=== PATIENT | female | born 1980 | race Caucasian/White ===

== ENCOUNTER 2020-04-04 14:23 | Inpatient (IN) | payer BC, SELFPAY ==
[~2020-04-04] VITALS: Ht 157.5 cm; Wt 97.5 kg
[~2020-04-04 14:23] MED LIST: LOP600 PO; MOT800 PO; [UNRECOGNIZED DRUG - OTHER] PO
[2020-04-04 14:24] VITALS: Ht 157.5 cm; Wt 97.5 kg
[2020-04-04 15:56] LABS: BASOPHIL % 0.7 % (0-2); PLATELET COUNT 273 x10^3mcL (130-400); RED CELL DISTRIBUTION WIDTH 14.3 % (11.5-14.5)
[2020-04-04 16:15] LABS: microscopic required? NO
[2020-04-04 16:26] LABS: urine erythrocyte NEGATIVE (NEGATIVE)
[2020-04-04 16:28] LABS: CALCIUM 8.3 mg/dL (8.5-10.1); CARBON DIOXIDE 27.8 mmol/L (21-32); CHLORIDE SERUM 101 mmol/L (98-107); CREATININE SERUM 0.8 mg/dL (0.6-1.0); GFR1 > 60 mL/min; GLUCOSE SERUM 100 mg/dL (74-106); SODIUM SERUM 136 mmol/L (136-145)
[2020-04-04 16:33] LABS: ALKALINE PHOSPHATASE 156 U/L (46-116); ALT/SGPT 36 U/L (14-59); AST/SGOT 23 U/L (15-37); BILIRUBIN TOTAL 0.3 mg/dL (0.20-1.00); C REACTIVE PROTEIN 5.8 mg/dL (<=0.9); LACTIC DEHYDROGENASE (LDH) 201 U/L (100-190)
[2020-04-04 16:34] LABS: ALBUMIN 3.3 g/dL (3.4-5.0)
[2020-04-04 19:55] LABS: MAGNESIUM 2.1 mg/dL (1.8-2.4); PHOSPHOROUS 3.1 mg/dL (2.5-4.9)
[2020-04-04 21:10] VITALS: BP 123/81
[2020-04-04 22:26] VITALS: BP 144/92
[2020-04-05 06:04] VITALS: BP 105/68
[2020-04-05 06:39] LABS: C REACTIVE PROTEIN 8.5 mg/dL (<=0.9); CALCIUM 8.1 mg/dL (8.5-10.1); CARBON DIOXIDE 29.5 mmol/L (21-32); CHLORIDE SERUM 102 mmol/L (98-107); CREATININE SERUM 0.7 mg/dL (0.6-1.0); GFR1 > 60 mL/min; GLUCOSE SERUM 141 mg/dL (74-106); MAGNESIUM 2.2 mg/dL (1.8-2.4); PHOSPHOROUS 4.1 mg/dL (2.5-4.9); POTASSIUM SERUM 4.1 mmol/L (3.5-5.1); SODIUM SERUM 137 mmol/L (136-145)
[2020-04-05 06:54] LABS: PLATELET COUNT 267 x10^3mcL (130-400); RED CELL DISTRIBUTION WIDTH 14.5 % (11.5-14.5)
[2020-04-05 08:46] VITALS: BP 110/73
[2020-04-05 08:49] LABS: BASOPHIL % 0 % (0-2)
[2020-04-05 10:33] LABS: ERYTHROCYTE SED RATE 77 mm/hr (0-20)
[2020-04-05 13:56] VITALS: BP 106/66
[2020-04-05 17:00] VITALS: BP 127/76
[2020-04-05 17:35] LABS: BILIRUBIN DIRECT 0.11 mg/dL (0.0-0.2); BILIRUBIN TOTAL 0.3 mg/dL (0.20-1.00); TOTAL PROTEIN, SERUM 7.9 g/dL (6.4-8.2)
[2020-04-05 17:38] LABS: ALBUMIN 3.2 g/dL (3.4-5.0)
[2020-04-05 21:36] VITALS: BP 128/69
[2020-04-06 05:55] VITALS: BP 107/68
[2020-04-06 06:39] LABS: C REACTIVE PROTEIN 8.1 mg/dL (<=0.9); CALCIUM 8.3 mg/dL (8.5-10.1); CARBON DIOXIDE 25.1 mmol/L (21-32); CHLORIDE SERUM 103 mmol/L (98-107); CREATININE SERUM 0.7 mg/dL (0.6-1.0); GFR1 > 60 mL/min; GLUCOSE SERUM 118 mg/dL (74-106); PHOSPHOROUS 3.4 mg/dL (2.5-4.9); POTASSIUM SERUM 3.6 mmol/L (3.5-5.1); SODIUM SERUM 139 mmol/L (136-145)
[2020-04-06 06:41] LABS: PLATELET COUNT 269 x10^3mcL (130-400); RED CELL DISTRIBUTION WIDTH 14.3 % (11.5-14.5)
[2020-04-06 06:52] LABS: BASOPHIL % 0 % (0-2)
[2020-04-06 08:41] VITALS: BP 97/50
[2020-04-06 11:54] LABS: ALBUMIN 2.8 g/dL (3.4-5.0); BILIRUBIN DIRECT 0.1 mg/dL (0.0-0.2); BILIRUBIN TOTAL 0.29 mg/dL (0.20-1.00); TOTAL PROTEIN, SERUM 7.5 g/dL (6.4-8.2)
[2020-04-06 12:26] VITALS: BP 96/58
[2020-04-06 17:08] VITALS: BP 92/51
[2020-04-06 21:46] VITALS: BP 108/60
[2020-04-07 06:45] VITALS: BP 98/52
[2020-04-07 07:00] LABS: PLATELET COUNT 290 x10^3mcL (130-400); RED CELL DISTRIBUTION WIDTH 14.2 % (11.5-14.5)
[2020-04-07 07:18] LABS: CALCIUM 8.7 mg/dL (8.5-10.1); CARBON DIOXIDE 24.9 mmol/L (21-32); CHLORIDE SERUM 103 mmol/L (98-107); CREATININE SERUM 0.7 mg/dL (0.6-1.0); GFR1 > 60 mL/min; GLUCOSE SERUM 113 mg/dL (74-106); MAGNESIUM 2.1 mg/dL (1.8-2.4); PHOSPHOROUS 3.8 mg/dL (2.5-4.9); POTASSIUM SERUM 3.7 mmol/L (3.5-5.1); SODIUM SERUM 139 mmol/L (136-145)
[2020-04-07 07:23] LABS: BILIRUBIN DIRECT 0.1 mg/dL (0.0-0.2); BILIRUBIN TOTAL 0.23 mg/dL (0.20-1.00)
[2020-04-07 07:27] LABS: ALBUMIN 2.9 g/dL (3.4-5.0)
[2020-04-07 08:07] LABS: BASOPHIL % 0 % (0-2)
[2020-04-07 09:07] VITALS: BP 101/52
[2020-04-07 14:05] VITALS: BP 98/46
[2020-04-07 17:38] VITALS: BP 103/65
[2020-04-07 20:28] VITALS: BP 108/58
[2020-04-08 06:14] VITALS: BP 97/52
[2020-04-08 07:27] LABS: BILIRUBIN DIRECT 0.11 mg/dL (0.0-0.2); BILIRUBIN TOTAL 0.2 mg/dL (0.20-1.00); TOTAL PROTEIN, SERUM 6.7 g/dL (6.4-8.2)
[2020-04-08 07:30] LABS: ALBUMIN 2.9 g/dL (3.4-5.0)
[2020-04-08 08:54] VITALS: BP 132/66
[2020-04-08 12:19] VITALS: BP 112/66
[2020-04-08 16:44] VITALS: BP 118/70
[2020-04-08 20:36] VITALS: BP 111/59
[2020-04-09 05:42] VITALS: BP 156/78
[2020-04-09 07:09] LABS: BASOPHIL % 0.4 % (0-2); PLATELET COUNT 370 x10^3mcL (130-400); RED CELL DISTRIBUTION WIDTH 13.5 % (11.5-14.5)
[2020-04-09 07:30] LABS: ALKALINE PHOSPHATASE 110 U/L (46-116); ALT/SGPT 25 U/L (14-59); AST/SGOT 22 U/L (15-37); BILIRUBIN DIRECT 0.09 mg/dL (0.0-0.2); BILIRUBIN TOTAL 0.25 mg/dL (0.20-1.00); C REACTIVE PROTEIN 2.4 mg/dL (<=0.9); CALCIUM 8.8 mg/dL (8.5-10.1); CARBON DIOXIDE 25.1 mmol/L (21-32); CHLORIDE SERUM 104 mmol/L (98-107); CREATININE SERUM 0.6 mg/dL (0.6-1.0); GFR1 > 60 mL/min; GLUCOSE SERUM 99 mg/dL (74-106); POTASSIUM SERUM 3.8 mmol/L (3.5-5.1); SODIUM SERUM 139 mmol/L (136-145); TOTAL PROTEIN, SERUM 7.4 g/dL (6.4-8.2)
[2020-04-09 07:31] LABS: ALBUMIN 2.7 g/dL (3.4-5.0)
[2020-04-09 08:42] VITALS: BP 93/49
[2020-04-09] MEDS ORDERED: VENTOLIN H0.09 MG/A1 INH (08:55)
[2020-04-09] MEDS ORDERED: ZINC SULFATE220 MG PO (08:55)
[2020-04-09] MEDS ORDERED: MUCINEX600 MG PO (08:56)
[2020-04-09] MEDS ORDERED: MEDI-FIRST ASP325 MG PO (08:57)
[2020-04-09] MEDS ORDERED: DECADRON6 MG PO (08:57)
[2020-04-09] MEDS ORDERED: VITC PO (08:58)
[2020-04-09] MEDS ORDERED: D-10001 TAB PO (08:58)
[2020-04-09 13:08] VITALS: BP 98/50
[2020-04-09 13:29] VITALS: BP 98/50
== END 2020-04-09 17:04 | disposition home or self-care (01) | DRG 871 ==
LOC: ED 14:23 → DU 19:10
PROVIDERS: Emergency Medicine; ADMIT Internal Medicine; ATTEND Internal Medicine
PROC: 30233K1 Transfusion of Nonautologous Frozen Plasma into Peripheral Vein, Percutaneous Approach (ICD-10-PCS; principal; 2020-04-05)
PROC: XW033E5 Introduction of Remdesivir Anti-infective into Peripheral Vein, Percutaneous Approach, New Technology Group 5 (ICD-10-PCS; 2020-04-05)
DX: A41.89 Other specified sepsis (principal); U07.1 COVID-19; J12.89 Other viral pneumonia; J96.01 Acute respiratory failure with hypoxia; E44.1 Mild protein-calorie malnutrition; Z68.41 Body mass index [BMI] 40.0-44.9, adult; E66.9 Obesity, unspecified; E11.9 Type 2 diabetes mellitus without complications; Z79.899 Other long term (current) drug therapy; Z95.0 Presence of cardiac pacemaker
CPT/HCPCS: 36600; 83880; 85378; 87804; 94150; G0378; J0456; J0696; J1100; J1644; J1650; J3535; J7040; J7050; J7060; U0003